=== PATIENT | female | born 1985 | race Caucasian/White ===

== ENCOUNTER 2018-04-23 16:55 | Emergency (ER) | payer OTHER ==
--- NOTE | 2018-04-23 16:57 | PDOC ---
History of Present Illness - General History Source: Patient Exam Limitations: No Limitations - History of Present Illness Initial Comments: 04/23/18 18:13 Patient is a 33 year old female with a significant past medical history of Depression, Anxiety, HTN, who presents to the ED with complaints of mid sternal chest pain that began earlier today. Patient reports experiencing sudden mild chest pain that she states feels like a pressure with associated difficulty breathing, stating it feels as if she cannot take a full breath. She reports experiencing a similar episode a few months ago that she states relieved itself over time. Patient reports not being able to determine if symptoms are caused by her anxiety, stating she began to become worried prompting her to come into the ED for further evaluation. Denies chest pain, Sob. Denies nausea, vomiting. Denies fevers, chills. Denies contact with sick individuals, out of state travelling. Denies dysuria, hematuria. Denies diarrhea, constipation. Denies trauma to affected area. Denies any other symptoms. Allergies: None Social history: No smoking. No alcohol. No illicit drugs. Surgical history: None PMD: None <Marcelo Rebolledo - Last Filed: 04/23/18 18:13> <Chioma Flores - Last Filed: 04/23/18 19:13> - General Chief Complaint: Shortness of Breath Stated Complaint: SOB Time Seen by Provider: 04/23/18 16:57 Past History <Marcelo Rebolledo - Last Filed: 04/23/18 18:13> - Past Medical History Anemia: No Asthma: Yes Cancer: No Cardiac Disorders: No CVA: No COPD: No CHF: No Dementia: No Diabetes: No GI Disorders: No Disorders: No HTN: No Hypercholesterolemia: No Liver Disease: No Seizures: No Thyroid Disease: No - Surgical History Abdominal Surgery: No Appendectomy: No Cardiac Surgery: No Cholecystectomy: No Lung Surgery: No Neurologic Surgery: No Orthopedic Surgery: No - Immunization History Immunization Up to Date: Yes - Suicide/Smoking/Psychosocial Hx Smoking History: Never smoked Have you smoked in the past 12 months: No Number of Cigarettes Smoked Daily: 0 Hx Alcohol Use: No Drug/Substance Use Hx: No Substance Use Type: Alcohol Hx Substance Use Treatment: No <Chioma Flores - Last Filed: 04/23/18 19:13> - Past Medical History Allergies/Adverse Reactions: Allergies Allergy/AdvReac Type Severity Reaction Status Date / Time No Known Allergies Allergy Verified 02/20/18 20:24 Home Medications: Ambulatory Orders Nitrofurantoin Monohyd/M-Cryst [Macrobid -] 100 mg PO BID #6 capsule 02/20/18 Lisinopril 10 mg PO DAILY #14 tablet 04/23/18 Review of Systems - Review of Systems Able to Perform ROS?: Yes Comments:: 04/23/18 18:14 See HPI. All other systems reviewed and unremarkable <Marcelo Rebolledo - Last Filed: 04/23/18 18:13> *Physical Exam - Vital Signs Last Vital Signs Temp Pulse Resp BP Pulse Ox 98.2 F 80 20 169/109 100 04/23/18 16:56 04/23/18 16:56 04/23/18 16:56 04/23/18 16:56 04/23/18 16:56 - Physical Exam Comments: 04/23/18 18:14 General Physical Exam: NAD EOMI, ROSEANNE MMM, OP WNL NCAT, no midline cervical tenderness RRR, nl s1/s2, no m/r/g CTABL, no w/r/r Soft, NTND No edema, WWP, no rash Neuro grossly intact, gait WNL, moving all 4 A&O x 3, mood/affect WNL. <Marcelo Rebolledo - Last Filed: 04/23/18 18:13> ED Treatment Course - ADDITIONAL ORDERS Additional order review: Laboratory Results 04/23/18 17:40 Urine HCG, Qual Negative - Medications Given in the ED: ED Medications Discontinued Medications Generic Name Dose Route Start Last Admin Trade Name Torstenq PRN Reason Stop Dose Admin Famotidine 20 mg 04/23/18 17:04 04/23/18 17:40 Pepcid - PO 04/23/18 17:05 20 mg ONCE ONE Administration Ondansetron HCl 4 mg 04/23/18 17:04 04/23/18 17:40 Zofran - PO 04/23/18 17:05 4 mg ONCE ONE Administration <Marcelo Rebolledo - Last Filed: 04/23/18 18:13> Medical Decision Making - Medical Decision Making 04/23/18 17:05 33yoF w/ depression/anxiety, frequent episodes of retrosternal chest pain she attributes to anxiety presents w/ same today. - ekg - gi cocktail - reeval for dispo 04/23/18 19:11 EKG unremarkable UPT negative DC <Chioma Flores - Last Filed: 04/23/18 19:13> *DC/Admit/Observation/Transfer - Attestations Scribe Attestion: 04/23/18 18:14 Documentation prepared by Marcelo Rebolledo, acting as general medical practitioner for Chioma Flores MD. <Marcelo Rebolledo - Last Filed: 04/23/18 18:13> <Chioma Flores - Last Filed: 04/23/18 19:13> Diagnosis at time of Disposition: Chest pain - Discharge Dispostion Disposition: HOME Condition at time of disposition: Good - Prescriptions Prescriptions: Lisinopril 10 mg PO DAILY #14 tablet - Patient Instructions Additional Instructions: See your PMD this week for further evaluation. You have been prescribed your home Lisinopril for blood pressure mangement. Take TUMS for chest pain and stomach acid. - Post Discharge Activity Forms/Work/School Notes: Back to Work
[2018-04-23] MEDS ORDERED: FAMOTIDINE 20 MG TABLET PO ONE (17:04)
[2018-04-23] MEDS ORDERED: ONDANSETRON 4 MG TABLET PO ONE ×2 (17:04→17:37)
[2018-04-23 17:16] VITALS: BP 169/109; PULSE 80; TEMP 98.2; BMI 32.8
[2018-04-23] MEDS ORDERED: FAMOTIDINE 20 MG TABLET ONE (17:37)
--- NOTE | 2018-04-24 08:56 | EKG ---
Test Reason : Blood Pressure : / mmHG Vent. Rate : 085 BPM Atrial Rate : 085 BPM P-R Int : 152 ms QRS Dur : 084 ms QT Int : 394 ms P-R-T Axes : 023 014 020 degrees QTc Int : 468 ms NORMAL SINUS RHYTHM NORMAL ECG WHEN COMPARED WITH ECG OF 13-JUN-2016 16:29, CRITERIA FOR SEPTAL INFARCT ARE NO LONGER PRESENT Confirmed by VANCE CESPEDES MD ([id number]) on 04/24/2018 8:56:06 AM Referred By: PAULY Confirmed By:VANCE CESPEDES MD
== END 2018-04-23 19:18 | disposition home or self-care (01) ==
LOC: FER 16:55
DX: R07.9 Chest pain, unspecified (principal); F41.8 Other specified anxiety disorders; I10 Essential (primary) hypertension
CPT/HCPCS: 84703; 93005; 99281-25

== ENCOUNTER 2019-10-05 07:11 | Emergency (ER) | payer OTHER ==
[2019-10-05 07:19] VITALS: BP 173/100; PULSE 115; TEMP 98.2; BMI 28.3
[2019-10-05] MEDS ORDERED: diphenhydrAMINE HCL 25 MG CAPSULE (FP) PO ONE ×2 (07:26→07:48)
[2019-10-05] MEDS ORDERED: predniSONE 20 MG TABLET (UD) PO ONE (07:26)
--- NOTE | 2019-10-05 07:31 | PDOC ---
History of Present Illness - General Chief Complaint: Rash Stated Complaint: RASH Time Seen by Provider: 10/05/19 07:12 History Source: Patient Exam Limitations: No Limitations - History of Present Illness Initial Comments: 10/05/19 07:27 34 y/o female with rash itching and burning to face and back and arms since yesterday. No new products. Has had multiple complaints of joint pain but no fever being worked up for lupus by her PMD. 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 No SOB or chest pain. Congested. Symptoms present since July. Mold negative and has been on antibiotics as well. Patient took Benadryl yesterday. Severity: Yes: mild Past History - Past Medical History Allergies/Adverse Reactions: Allergies Allergy/AdvReac Type Severity Reaction Status Date / Time No Known Allergies Allergy Verified 02/20/18 20:24 Home Medications: Ambulatory Orders Nitrofurantoin Monohyd/M-Cryst [Macrobid -] 100 mg PO BID #6 capsule 02/20/18 Lisinopril 10 mg PO DAILY #14 tablet 04/23/18 predniSONE [Deltasone -] 20 mg PO BID #10 tablet 10/05/19 Anemia: No Asthma: Yes Cancer: No Cardiac Disorders: No CVA: No COPD: No CHF: No Dementia: No Diabetes: No GI Disorders: No Disorders: No HTN: No Hypercholesterolemia: No Liver Disease: No Seizures: No Thyroid Disease: No - Surgical History Abdominal Surgery: No Appendectomy: No Cardiac Surgery: No Cholecystectomy: No Lung Surgery: No Neurologic Surgery: No Orthopedic Surgery: No - Immunization History Immunization Up to Date: Yes - Psycho Social/Smoking Cessation Hx Smoking History: Unknown if ever smoked Have you smoked in the past 12 months: No Number of Cigarettes Smoked Daily: 0 Information on smoking cessation initiated: No Hx Alcohol Use: No Drug/Substance Use Hx: No Substance Use Type: Alcohol Hx Substance Use Treatment: No Review of Systems - Review of Systems Able to Perform ROS?: Yes Is the patient limited Indonesian proficient: No Constitutional: No: Chills, Fever Respiratory: Yes: Cough. No: Shortness of Breath Cardiac (ROS): No: Chest Pain ABD/GI: No: Diarrhea, Nausea, Vomiting Musculoskeletal: Yes: Joint Pain Integumentary: Yes: Pruritus, Rash All Other Systems: Reviewed and Negative *Physical Exam - Vital Signs Last Vital Signs Temp Pulse Resp BP Pulse Ox 98.2 F 115 H 14 173/100 H 98 10/05/19 07:17 10/05/19 07:17 10/05/19 07:17 10/05/19 07:17 10/05/19 07:17 - Physical Exam General Appearance: Yes: Nourished, Appropriately Dressed. No: Apparent Distress HEENT: positive: EOMI, ROSEANNE, Normal ENT Inspection, Normal Voice, Symmetrical, Pharynx Normal Neck: positive: Trachea midline, Normal Thyroid, Supple. negative: Tender, Rigid Respiratory/Chest: positive: Lungs Clear, Normal Breath Sounds. negative: Chest Tender, Respiratory Distress Cardiovascular: positive: Regular Rhythm, Regular Rate, S1, S2. negative: Edema , JVD, Murmur Vascular Pulses: Femoral (R): 4+, Femoral (L): 4+, Carotid (R): 4+, Carotid (L) : 4+, Dorsalis-Pedis (R): 4+, Doralis-Pedis (L): 4+ Gastrointestinal/Abdominal: positive: Normal Bowel Sounds, Flat, Soft. negative : Tender, Organomegaly Lymphatic: negative: Adenopathy, Tenderness, Other Musculoskeletal: positive: Normal Inspection. negative: CVA Tenderness Extremity: positive: Normal Capillary Refill, Normal Range of Motion. negative : Normal Inspection (small abrasion to sole of right foot no foreign body or infection seen), Swelling, Calf Tenderness, Erythema Integumentary: positive: Normal Color, Dry, Warm, Rash (erythematous rash to face and back noted). 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 NML intact, Fully Oriented, Alert, Normal Mood/ Affect, Normal Response, Motor Strength 5/5 ED Progress Note - Progress Note Progress Note: 10/05/19 07:30 Patient with rash, will give Benadryl and Prednisone Follow up with PMD, if worsen return to ER Discharge - Discharge Information Problems reviewed: Yes Clinical Impression/Diagnosis: Contact dermatitis Qualifiers: Contact dermatitis type: unspecified Contact dermatitis trigger: unspecified trigger Qualified Code(s): L25.9 - Unspecified contact dermatitis, unspecified cause Condition: Good Disposition: HOME - Admission No - Follow up/Referral - Patient Discharge Instructions Patient Printed Discharge Instructions: DI for Contact Dermatitis Additional Instructions: Benadryl 25 mg every 6 hr as needed Prednisone 20 mg 2x/day for 5 days Follow up with PMD and your specialist If worsen return to ER - Post Discharge Activity
[2019-10-05] MEDS ORDERED: predniSONE 20 MG TABLET (UD) ONE (07:48)
== END 2019-10-05 08:18 | disposition home or self-care (01) ==
LOC: FER 07:11
DX: L25.9 Unspecified contact dermatitis, unspecified cause (principal); J45.909 Unspecified asthma, uncomplicated
CPT/HCPCS: 99281-25

== ENCOUNTER 2021-08-22 16:50 | Emergency (ER) | payer OTHER ==
[2021-08-22 17:05] VITALS: PULSE 100; TEMP 98.9; BMI 34.5
[2021-08-22] MEDS ORDERED: KETOROLAC TROMETHAMINE 30 MG/1 ML VIAL IM ONE (17:16)
[2021-08-22] MEDS ORDERED: KETOROLAC TROMETHAMINE 30 MG/1 ML VIAL ONE (17:48)
[2021-08-22] MEDS ORDERED: LISINOPRIL 10 MG TABLET PO ONE (19:24)
[2021-08-22] MEDS ORDERED: LISINOPRIL 10 MG TABLET ONE (19:26)
[2021-08-22 20:02] VITALS: BP 184/117
== END 2021-08-22 20:08 | disposition home or self-care (01) ==
LOC: FER 16:50
PROC: 3E0233Z Introduction of Anti-inflammatory into Muscle, Percutaneous Approach (ICD-10-PCS; principal; 2021-08-22)
DX: N83.202 Unspecified ovarian cyst, left side (principal); I10 Essential (primary) hypertension
CPT/HCPCS: 76830-TC; 81003; 84703; 87086; 99284-25

== ENCOUNTER 2022-04-19 01:08 | Emergency (ER) | payer OTHER ==
[2022-04-19 01:17] VITALS: BP 159/101; PULSE 81; RESP 16; TEMP 97.8; BMI 35.4
[2022-04-19] MEDS ORDERED: ACETAMINOPHEN 500 MG TABLET (FP) PO ONE (01:42)
[2022-04-19] MEDS ORDERED: ACETAMINOPHEN 500 MG TABLET (FP) ONE (01:44)
[2022-04-19] MEDS ORDERED: LIDOCAINE 5% TOPICAL PATCH TP ONE (01:56)
[2022-04-19] MEDS ORDERED: LIDOCAINE 5% TOPICAL PATCH ONE (03:02)
[2022-04-19] MEDS ORDERED: LIDOCAINE PATCH REMOVAL MC SCH (22:00)
== END 2022-04-19 03:28 | disposition home or self-care (01) ==
LOC: FER 01:08
DX: S83.92XA Sprain of unspecified site of left knee, initial encounter (principal); X50.0XXA Overexertion from strenuous movement or load, initial encounter
CPT/HCPCS: 73700-TC-RT; 99284-25

== ENCOUNTER 2022-10-02 08:21 | Day surgery (SDC) | payer OTHER ==
[2022-09-30 11:43] VITALS: BMI 42.5
[2022-10-02] MEDS ORDERED: BUPIVACAINE HCL/PF 0.5% (5MG/ML) 10 ML VIAL ONE ×2 (12:58→13:09)
[2022-10-02] MEDS ORDERED: BUPIVACAINE LIPOSOME/PF (EXPAREL) 266 MG/20 ML VIAL ONE (12:58)
[2022-10-02] MEDS ORDERED: SODIUM CHLORIDE 0.9% P/F 10 ML VIAL IJ ONE (12:58)
[2022-10-02] MEDS ORDERED: MIDAZOLAM HCL 2 MG/2 ML SINGLE DOSE VIAL ONE ×2 (12:58→13:30)
[2022-10-02] MEDS ORDERED: PROPOFOL 60 ML ONE (13:30)
[2022-10-02] MEDS ORDERED: ONDANSETRON 4 MG/2 ML VIAL ONE (13:31)
[2022-10-02] MEDS ORDERED: ceFAZolin SODIUM 1 GM VIAL ONE (13:31)
[2022-10-02] MEDS ORDERED: DEXAMETHASONE SOD PHOSPHATE 4 MG/1 ML VIAL ONE (13:31)
[2022-10-02] MEDS ORDERED: KETOROLAC TROMETHAMINE 30 MG/1 ML VIAL ONE (13:31)
[2022-10-02] MEDS ORDERED: oxyCODONE HCL 5 MG TABLET PO PRN (15:43)
[2022-10-02] MEDS ORDERED: ONDANSETRON 4 MG/2 ML VIAL IVPUSH PRN (15:43)
[2022-10-02] MEDS ORDERED: LACTATED RINGERS SOLUTION 1,000 ML IV SCH (15:45)
[2022-10-02 16:00] VITALS: RESP 16
[2022-10-02 16:39] VITALS: TEMP 97.8
[2022-10-02] MEDS ORDERED: oxyCODONE HCL 5 MG TABLET PO ONE (17:40)
[2022-10-02] MEDS ORDERED: oxyCODONE HCL 5 MG TABLET ONE (17:43)
[2022-10-02 18:17] VITALS: BP 120/74; PULSE 84
== END 2022-10-02 18:15 | disposition home or self-care (01) ==
LOC: FASU 08:21
PROVIDERS: ATTEND Orthopaedic Surgery Sports Medicine
PROC: 0MQP4ZZ Repair Left Knee Bursa and Ligament, Percutaneous Endoscopic Approach (ICD-10-PCS; principal; 2022-10-02 10:15)
DX: S83.512A Sprain of anterior cruciate ligament of left knee, initial encounter (principal); M65.9 Synovitis and tenosynovitis, unspecified; X58.XXXA Exposure to other specified factors, initial encounter; Y93.9 Activity, unspecified; Y92.9 Unspecified place or not applicable
CPT/HCPCS: 73560-TC-LT-FY; 84703; 94760; C1713

== ENCOUNTER 2023-06-16 12:18 | Emergency (ER) | payer OTHER ==
[2023-06-16 12:42] VITALS: PULSE 88; RESP 20; TEMP 99.2; BMI 38.0
[2023-06-16 12:48] VITALS: BP 158/88
== END 2023-06-16 13:23 | disposition home or self-care (01) ==
LOC: FER 12:18
DX: R00.2 Palpitations (principal)
CPT/HCPCS: 93005; 93010; 99283-25

== ENCOUNTER 2023-06-16 14:13 | Emergency (ER) | payer OTHER ==
[2023-06-16 14:22] VITALS: BMI 38.0
[2023-06-16] MEDS ORDERED: amLODIPine BESYLATE 5 MG TABLET (FP) PO ONE (15:18)
[2023-06-16] MEDS ORDERED: LISINOPRIL 10 MG TABLET PO ONE (15:19)
[2023-06-16] MEDS ORDERED: ACETAMINOPHEN 1000 MG/100 ML BAG IVPB ONE (15:22)
[2023-06-16] MEDS ORDERED: SODIUM CHLORIDE 1,000 ML IV STA (15:22)
[2023-06-16] MEDS ORDERED: LISINOPRIL 10 MG TABLET ONE (15:38)
[2023-06-16] MEDS ORDERED: ACETAMINOPHEN INJECTION 100 ML IVPB ONE (15:38)
[2023-06-16] MEDS ORDERED: amLODIPine BESYLATE 5 MG TABLET (FP) ONE (15:38)
[2023-06-16 15:48] LABS: BASO % 0.7 % (0-2.0); EOS % 5.1 % (0-4.5); HEMOGLOBIN 14.1 GM/dL (10.7-15.3); MCH 31.8 pg (25.7-33.7); MCHC 35.4 g/dl (32.0-36.0); MEAN CELL VOLUME 89.8 fl (80-96); MEAN PLT VOLUME 6.9 fl (7.5-11.1); MONO % 10.5 % (3.8-10.2); NEUT % 42.7 % (42.8-82.8); PLATELET COUNT 466 10^3/uL (134-434); RBC 4.45 M/mm3 (3.60-5.2); RDW 13.8 % (11.6-15.6); WHITE BLOOD COUNT 5.1 K/mm3 (4.0-10.0)
[2023-06-16 15:59] LABS: CHLORIDE 101 mmol/L (98-107); SODIUM 130 mmol/L (136-145)
[2023-06-16 16:01] LABS: CALCIUM 8.9 mg/dL (8.5-10.1)
[2023-06-16 16:03] LABS: ALBUMIN 3.5 g/dl (3.4-5.0); CO2 24 mmol/L (21-32); GLUCOSE,RANDOM 104 mg/dL (74-106); MAGNESIUM 2.1 mg/dL (1.8-2.4)
[2023-06-16 16:05] LABS: CREATININE 0.8 mg/dL (0.55-1.3); SGOT/AST 56 U/L (15-37)
[2023-06-16 16:07] LABS: BILIRUBIN,TOTAL 0.8 mg/dL (0.2-1); TOT PROT 7.6 g/dl (6.4-8.2)
[2023-06-16 16:08] LABS: ALK PHOS 72 U/L (45-117)
[2023-06-16 16:13] LABS: ANION GAP 5 MMOL/L (8-16); POTASSIUM 6.6 mmol/L (3.5-5.1); SGPT/ALT 44 U/L (13-61)
[2023-06-16 16:35] LABS: URINE APPEARANCE CLEAR; URINE BILIRUBIN NEGATIVE (NEGATIVE); URINE COLOR YELLOW; URINE GLUCOSE (UA) NEGATIVE (NEGATIVE); URINE KETONE NEGATIVE (NEGATIVE); URINE LEUK ESTERASE NEGATIVE (NEGATIVE); URINE NITRITE NEGATIVE (NEGATIVE); URINE PROTEIN NEGATIVE (NEGATIVE); URINE UROBILINOGEN 0.2 mg/dL (0.2-1.0)
[2023-06-16 17:01] LABS: INR 0.97 (0.83-1.09); PROTHROMBIN TIME (PATIENT) 11.2 SEC (9.7-13.0)
[2023-06-16 17:04] LABS: ACTIVATED PTT 33.7 SECONDS (25.2-36.5)
[2023-06-16 17:13] VITALS: RESP 16; TEMP 97.9
[2023-06-16 17:53] VITALS: BP 134/86; PULSE 83
== END 2023-06-16 18:19 | disposition home or self-care (01) ==
LOC: JER 14:13
PROC: 3E033NZ Introduction of Analgesics, Hypnotics, Sedatives into Peripheral Vein, Percutaneous Approach (ICD-10-PCS; principal; 2023-06-16)
PROC: 3E0337Z Introduction of Electrolytic and Water Balance Substance into Peripheral Vein, Percutaneous Approach (ICD-10-PCS; 2023-06-16)
DX: R07.89 Other chest pain (principal); R00.2 Palpitations; R20.2 Paresthesia of skin; Z20.822 Contact with and (suspected) exposure to COVID-19
CPT/HCPCS: 0241U-QW; 36415; 71046-TC-FY; 80053; 81003; 83735; 84132; 84443; 84484; 84703; 85025; 85379; 85610; 85730; 87086; 99284-25